=== PATIENT | female | born 1965 | race Caucasian/White ===

== ENCOUNTER 2022-10-16 07:39 | Day surgery (SDC) | payer OTHER, SELFPAY ==
[2022-10-16 07:52] VITALS: BMI 26.4
[2022-10-16 07:57] VITALS: BP 118/78; PULSE 76; RESP 18; TEMP 36.1; O2SAT 98; BMI 25.1
--- NOTE | 2022-10-16 08:48 | P.CONAN_ITS ---
HPI - Anesthesia Eval Consult details Narrative: for colon screen [facility] Past Medical History Medical History (Updated 10/15/22 @ 12:51 by Latoya Melendez RN) Constipation UTI (urinary tract infection) Family History Family history of problems with anesthesia: No Surgical History Surgical History (Updated 10/15/22 @ 12:51 by Latoya Melendez RN) H/O hernia repair History of Problems with Anesthesia: No Social History Social History Patient Tobacco Use Status: Never used Tobacco Second Hand Smoke Exposure: No Use of substances other than those prescribed or required for medical reasons: No Are you DNR?: No Advance Directives: No Advance Directives Information Provided: Yes Advance Directives on File: No Meds Allergies Allergy/AdvReac Type Severity Reaction Status Date / Time No Known Allergies Allergy Verified 10/15/22 12:50 Home Medications Medication Instructions Recorded Confirmed Last Taken Type Probiotic 10/15/22 10/15/22 Unknown History Exam Exam Date and Time: October 16, 2022 0848 Height,Weight and Vital Signs: Height 5 ft 10 in Weight 79.379 kg Last Vital Signs Temp 97.0 F 10/16/22 07:57 Pulse 76 10/16/22 07:57 Resp 18 10/16/22 07:57 BP 118/78 10/16/22 07:57 Pulse Ox 98 10/16/22 07:57 O2 Del Method Room Air 10/16/22 07:57 Airway Mallampati Class: I TM Dist: >3cm Neck ROM: Full Heart: rrr Lungs: cta Assessment and Plan Assessment Anesthesia Assessment: Anesthesia Plan Discussed Final Anesthetic Review Family History of Problems with Anesthesia: No History of Problems with Anesthesia: No NPO: Yes ASA Class: I Final Preanesthetic Review: No Changes in Pt Med Stat, Meds/Allgs Chart Reviewed, Consent Obtained/Reviewed and Anes Risks/Benef Reviewed Patient Risk: Low Procedure Risk: Low Anesthetic Plan Anesthetic Plan: MAC: Disposition: Standard PACU
[2022-10-16] MEDS: Lactated Ringers 1,000 ML 50 ML IVCONT (08:53)
--- NOTE | 2022-10-16 09:22 | MHC.SHP ---
Pre-Procedural Eval Section A Date of Service: 10/16/22 Section B Chief Complaint: screening Details of Present Illness: see H&P no changes Relevant Family History (Specify if Yes): No Relevant Social History: None Present Medications: see Short Stay Collaborative assessment Medical History: No relevant PMH History of Previous Operations: No relevant previous surgery Allergies: Allergies Allergy/AdvReac Type Severity Reaction Status Date / Time No Known Allergies Allergy Verified 10/15/22 12:50 Review of Systems Sugical H&P ROS: Negative: Constitution, Cardiovascular, Respiratory, Neurological, Psychiatric, Hem-Onc, Allergic/Immunologic, Gastrointestinal, Genitourinary, Musculoskeletal, Integumentary, Endocrine and Eyes/Ears/Nose/Throat Exam Surgical H&P Exam: Normal: HEENT, Normal: Heart, Normal: Lungs, Normal: Extremities, Normal: Abdomen, Normal: Skin and Normal: Neurological Plan Diagnosis/Plan: Unchanged I have reviewed the history and physical and performed a pertinent physical examination on my patient. No changes have occurred unless specified. Time Spent With Patient Time: Total time managing care of this patient today ____ minutes.
--- NOTE | 2022-10-16 10:04 | PM.OP ---
Brief Operative Note Date of Service: 10/16/22 Pre-op diagnosis: screening Post-op diagnosis: same Procedure: colonoscopy Surgeon: Jorge Nettles Anesthesia: MAC Was an Assembler Camper used for this Procedure?: No Estimated blood loss (mL): 0 Pathology: none sent Condition: stable Disposition: PACU
[2022-10-16 10:08] VITALS: BP 104/72; PULSE 81; RESP 16; TEMP 36.8; O2SAT 99
--- NOTE | 2022-10-16 10:22 | OP_ITS ---
DATE OF SERVICE: 10/16/2022 SURGEON: Jorge Nettles MD INDICATIONS: Colon cancer screening. PREOPERATIVE DIAGNOSIS: POSTOPERATIVE DIAGNOSIS: PROCEDURE PERFORMED: Colonoscopy to the terminal ileum. ESTIMATED BLOOD LOSS: COMPLICATIONS: ANESTHESIA: Monitored anesthesia care. ASSISTANTS: SPECIMENS: DESCRIPTION OF PROCEDURE: A history and physical was performed. The risks and benefits of the procedure were explained to the patient. Informed consent was obtained. The patient was placed in the left lateral decubitus position. A digital rectal exam was performed and was found to be normal. The Olympus pediatric video colonoscope was introduced into the rectum and advanced to the cecum without difficulty. The cecum was identified by transillumination, palpation, and identification of ileocecal valve. Examination was performed. The scope was removed. She tolerated the procedure well and was returned to the recovery area in stable condition. FINDINGS: The terminal ileum was examined and appeared normal. The visualized colonic mucosa was normal. There was some liquid stool coating the mucosa, mainly in the right colon and sigmoid. This was washed and suctioned. No polyps were identified. Retroflexed examination showed moderate-sized internal hemorrhoids. IMPRESSION: Normal colonoscopy. RECOMMENDATION: 1. Follow up as needed. 2. Repeat colonoscopy is recommended in 10 years for average risk individuals. MD JAMIE Bueno/RAMONAL / [id number]
[2022-10-16 10:23] VITALS: BP 125/81; PULSE 67; RESP 16; O2SAT 97
[2022-10-16 10:33] VITALS: BP 122/74; PULSE 64; RESP 16; TEMP 36.3; O2SAT 97
== END 2022-10-16 11:40 | disposition home or self-care (01) ==
PROVIDERS: PCP Family Medicine; Visit Provider Internal Medicine Gastroenterology
PROC: 0DJD8ZZ Inspection of Lower Intestinal Tract, Via Natural or Artificial Opening Endoscopic (ICD-10-PCS; CPT 45378; principal; 2022-10-16 08:40)
DX: Z12.11 Encounter for screening for malignant neoplasm of colon (principal); K64.8 Other hemorrhoids; K59.09 Other constipation; Z87.440 Personal history of urinary (tract) infections
CPT/HCPCS: 45378; J2250